=== PATIENT | female | born 1975 | race Caucasian/White ===

== ENCOUNTER 2018-03-13 01:36 | Inpatient (IN) | payer BC, OTHER ==
[~2018-03-13] VITALS: Ht 154.9 cm; Wt 61.2 kg
[2018-03-13 02:30] VITALS: BP 116/76
[2018-03-13] MEDS ORDERED: NAPR220T66 PO (02:39)
[2018-03-13] MEDS ORDERED: CLON0.1T PO (02:39)
[2018-03-13] MEDS ORDERED: DULO60CA63 PO (02:39)
[2018-03-13] MEDS ORDERED: TRAZ-147 PO (02:39)
[2018-03-13] MEDS ORDERED: ONDA4TAB11 PO (02:39)
[2018-03-13] MEDS ORDERED: GABA-534 PO (02:39)
[2018-03-13] MEDS ORDERED: FOLI1TAB16 PO (02:39)
[2018-03-13] MEDS ORDERED: MULT1TAB69 PO (02:39)
[2018-03-13] MEDS ORDERED: MAGNESIUM HYDROXIDE 30 ML LIQUID UDC PO PRN (02:45)
[2018-03-13] MEDS ORDERED: THIAMINE HCL 200 MG/2 ML VIAL IM ONE (02:45)
[2018-03-13] MEDS ORDERED: ONDANSETRON ODT 4 MG TAB.RAPDIS SL PRN (02:45)
[2018-03-13] MEDS ORDERED: LORAZEPAM 2 MG/1 ML VIAL IM PRN (02:45)
[2018-03-13] MEDS ORDERED: LORAZEPAM 1 MG TABLET PO PRN (02:45)
[2018-03-13] MEDS ORDERED: MIRALAX 17 GM POWD.PACK PO PRN (02:45)
[2018-03-13] MEDS ORDERED: MAG HYDROX/AL HYDROX/SIMETH 30 ML LIQUID UDC PO PRN (02:45)
[2018-03-13] MEDS ORDERED: DICYCLOMINE HCL 20 MG TABLET PO PRN (02:45)
[2018-03-13] MEDS ORDERED: ONDANSETRON 4 MG/2 ML VIAL IM PRN (02:45)
[2018-03-13] MEDS ORDERED: diphenhydrAMINE 50 MG CAPSULE PO PRN (02:45)
[2018-03-13] MEDS ORDERED: LOPERAMIDE HCL 2 MG CAPSULE PO PRN ×2 (02:45)
[2018-03-13 03:13] LABS: BASOPHILS # (AUTO) 0.1 K/uL (0.0-8.0); BASOPHILS % (AUTO) 0.7 % (0.0-2.0); EOSINOPHILS % (AUTO) 0.5 % (0.0-7.0); HEMATOCRIT 38.9 % (31.2-41.9); HEMOGLOBIN 13.4 g/dL (10.9-14.3); LYMPHOCYTES # (AUTO) 1.9 K/uL (20.0-40.0); LYMPHOCYTES % (AUTO) 24.2 % (20.5-51.5); MEAN CORPUSCULAR HEMOGLOBIN 31.3 uug (24.7-32.8); MEAN CORPUSCULAR HGB CONC 34 g/dL (32.3-35.6); MONOCYTES # (AUTO) 0.4 K/uL (2.0-10.0); MONOCYTES % (AUTO) 4.7 % (0.0-11.0); NEUTROPHILS # (AUTO) 5.5 K/uL (1.8-8.9); NEUTROPHILS % (AUTO) 69.9 % (38.5-71.5); PLATELET COUNT (AUTO) 283 K/uL (179-408); RED BLOOD CELL COUNT(AUTO) 4.28 MIL/uL (3.63-4.92); WHITE BLOOD COUNT (AUTO) 7.8 K/uL (3.8-11.8)
[2018-03-13 03:16] LABS: *AMPHETAMINE, URINE NEGATIVE (NEGATIVE); *BARBITURATE, URINE NEGATIVE (NEGATIVE); *CANNABINOID, URINE NEGATIVE (NEGATIVE); *COCCAINE, URINE NEGATIVE (NEGATIVE); *OPIATE, URINE NEGATIVE (NEGATIVE); *PHENCYCLIDINE SCREEN,URINE NEGATIVE (NEGATIVE)
[2018-03-13 03:29] LABS: CREATININE 0.7 mg/dL (0.6-1.3); MAGNESIUM 1.6 mg/dL (1.8-2.4); POTASSIUM 3.2 mmol/L (3.5-5.1); TOTAL PROTEIN, SERUM 8.5 g/dL (6.4-8.2)
[2018-03-13 03:37] LABS: THYROID STIMULATING HORMONE 2.25 mIU/mL (0.358-3.740)
[2018-03-13] MEDS ORDERED: MAGNESIUM OXIDE 400 MG TABLET PO ONE (04:00)
[2018-03-13] MEDS ORDERED: POTASSIUM CHLORIDE 20 MEQ TAB.PRT.SR PO ONE (04:00)
[2018-03-13 04:27] LABS: *URINE HCG, QUAL NEGATIVE (NEGATIVE)
[2018-03-13] MEDS: LORAZEPAM 1 MG TABLET PO PRN ×3 (04:29→10:24)
[2018-03-13] MEDS: IBUPROFEN 400 MG TABLET PO PRN ×2 (04:29→21:01)
[2018-03-13 08:00] VITALS: BP 131/89
[2018-03-13] MEDS: MULTIVITAMINS,THERAPEUTIC TABLET PO SCH (08:23)
[2018-03-13] MEDS: FOLIC ACID 1 MG TABLET PO SCH (08:23)
[2018-03-13] MEDS: THIAMINE HCL 100 MG TABLET PO SCH (08:23)
[2018-03-13 12:00] VITALS: BP 141/85
[2018-03-13] MEDS: LORAZEPAM 1 MG TABLET PO SCH ×3 (13:05→21:01)
[2018-03-13] MEDS: GABAPENTIN 300 MG CAPSULE PO SCH ×2 (13:05→17:14)
[2018-03-13 16:00] VITALS: BP 138/73
[2018-03-13] MEDS ORDERED: QUETIAPINE FUMARATE 25 MG TABLET PO PRN (17:30)
[2018-03-13 20:00] VITALS: BP 130/86
[2018-03-13] MEDS: TRAZODONE 100 MG TABLET PO SCH (21:01)
[2018-03-14 06:06] LABS: HEPATITIS B SURFACE AG Negative (Negative)
[2018-03-14 08:06] VITALS: BP 127/74
[2018-03-14 08:37] LABS: CREATININE 0.6 mg/dL (0.6-1.3); MAGNESIUM 1.9 mg/dL (1.8-2.4); POTASSIUM 3.3 mmol/L (3.5-5.1)
[2018-03-14] MEDS ORDERED: TUBERCULIN,PURIF.PROT.DERIV. 5 TU/0.1 ML TEST ID ONE (09:00)
[2018-03-14] MEDS: LORAZEPAM 1 MG TABLET PO SCH ×3 (09:36→20:14)
[2018-03-14] MEDS: THIAMINE HCL 100 MG TABLET PO SCH (09:36)
[2018-03-14] MEDS: MULTIVITAMINS,THERAPEUTIC TABLET PO SCH (09:36)
[2018-03-14] MEDS: GABAPENTIN 300 MG CAPSULE PO SCH ×3 (09:36→17:49)
[2018-03-14] MEDS: DULOXETINE 60 MG CAPSULE.DR PO SCH (09:36)
[2018-03-14] MEDS: FOLIC ACID 1 MG TABLET PO SCH (09:36)
[2018-03-14] MEDS: ACETAMINOPHEN 325 MG TABLET PO PRN (11:30)
[2018-03-14 12:09] VITALS: BP 153/87
[2018-03-14] MEDS ORDERED: POTASSIUM CHLORIDE 20 MEQ TAB.PRT.SR PO ONE (13:00)
[2018-03-14] MEDS ORDERED: BENZTROPINE MESYLATE 1 MG TABLET PO PRN (14:15)
[2018-03-14] MEDS: HALOPERIDOL 5 MG TABLET PO SCH ×2 (15:04→20:14)
[2018-03-14 16:00] VITALS: BP 139/93
[2018-03-14] MEDS ORDERED: LORAZEPAM 1 MG TABLET PO PRN ×2 (16:45)
[2018-03-14 20:00] VITALS: BP 132/87
[2018-03-14] MEDS: TRAZODONE 100 MG TABLET PO SCH (20:14)
[2018-03-15 08:00] VITALS: BP 128/86
[2018-03-15] MEDS: FOLIC ACID 1 MG TABLET PO SCH (08:55)
[2018-03-15] MEDS: MULTIVITAMINS,THERAPEUTIC TABLET PO SCH (08:55)
[2018-03-15] MEDS: GABAPENTIN 300 MG CAPSULE PO SCH ×3 (08:55→16:46)
[2018-03-15] MEDS: LORAZEPAM 1 MG TABLET PO SCH ×4 (08:55→21:00)
[2018-03-15] MEDS: HALOPERIDOL 5 MG TABLET PO SCH (08:55)
[2018-03-15] MEDS: DULOXETINE 60 MG CAPSULE.DR PO SCH (08:55)
[2018-03-15] MEDS: THIAMINE HCL 100 MG TABLET PO SCH (08:55)
[2018-03-15 09:55] LABS: CREATININE 0.8 mg/dL (0.6-1.3); MAGNESIUM 1.7 mg/dL (1.8-2.4); POTASSIUM 3.8 mmol/L (3.5-5.1)
[2018-03-15] MEDS ORDERED: MAGNESIUM OXIDE 400 MG TABLET PO ONE (11:00)
[2018-03-15 12:00] VITALS: BP 140/76
[2018-03-15] MEDS ORDERED: OLANZAPINE ZYDIS 5 MG TAB.RAPDIS PO SCH (15:30)
[2018-03-15 16:00] VITALS: BP 123/81
[2018-03-15] MEDS ORDERED: HALOPERIDOL LACTATE 5 MG/1 ML VIAL IM ONE (16:30)
[2018-03-15] MEDS ORDERED: LORAZEPAM 2 MG/1 ML VIAL IM ONE (16:30)
[2018-03-15] MEDS ORDERED: diphenhydrAMINE 50 MG/1 ML VIAL IM ONE (16:30)
[2018-03-15] MEDS: DIVALPROEX 500 MG TABLET.DR PO SCH (16:46)
[2018-03-15] MEDS: OLANZAPINE ZYDIS 5 MG TAB.RAPDIS PO SCH (16:47)
[2018-03-15 20:00] VITALS: BP 112/70
[2018-03-15] MEDS: TRAZODONE 100 MG TABLET PO SCH (21:00)
[2018-03-16 07:14] LABS: BASOPHILS % (AUTO) 1.2 % (0.0-2.0); EOSINOPHILS # (AUTO) 0.1 K/uL (0.0-0.7); EOSINOPHILS % (AUTO) 2.2 % (0.0-7.0); HEMATOCRIT 34.5 % (31.2-41.9); HEMOGLOBIN 12.1 g/dL (10.9-14.3); LYMPHOCYTES # (AUTO) 1.2 K/uL (20.0-40.0); LYMPHOCYTES % (AUTO) 41.7 % (20.5-51.5); MEAN CORPUSCULAR HGB CONC 35 g/dL (32.3-35.6); MEAN CORPUSCULAR VOLUME 91.2 fL (75.5-95.3); MONOCYTES # (AUTO) 0.2 K/uL (2.0-10.0); NEUTROPHILS # (AUTO) 1.4 K/uL (1.8-8.9); NEUTROPHILS % (AUTO) 47.9 % (38.5-71.5); PLATELET COUNT (AUTO) 182 K/uL (179-408); RED BLOOD CELL COUNT(AUTO) 3.78 MIL/uL (3.63-4.92)
[2018-03-16 07:21] LABS: CREATININE 0.7 mg/dL (0.6-1.3); MAGNESIUM 1.7 mg/dL (1.8-2.4); PHOSPHOROUS 3.4 mg/dL (2.5-4.9); POTASSIUM 3.5 mmol/L (3.5-5.1)
[2018-03-16] MEDS: LORAZEPAM 1 MG TABLET PO SCH ×3 (09:59→21:11)
[2018-03-16] MEDS: GABAPENTIN 300 MG CAPSULE PO SCH ×3 (09:59→17:00)
[2018-03-16] MEDS: ACETAMINOPHEN 325 MG TABLET PO PRN (09:59)
[2018-03-16] MEDS: FOLIC ACID 1 MG TABLET PO SCH (09:59)
[2018-03-16] MEDS: IBUPROFEN 400 MG TABLET PO PRN (09:59)
[2018-03-16] MEDS: MULTIVITAMINS,THERAPEUTIC TABLET PO SCH (10:00)
[2018-03-16] MEDS: DIVALPROEX 500 MG TABLET.DR PO SCH ×3 (10:00→17:00)
[2018-03-16] MEDS: THIAMINE HCL 100 MG TABLET PO SCH (10:00)
[2018-03-16] MEDS: OLANZAPINE ZYDIS 5 MG TAB.RAPDIS PO SCH ×2 (10:00→17:12)
[2018-03-16] MEDS: CYMBALTA 60 MG PO SCH (10:00)
[2018-03-16 16:28] VITALS: BP 129/61
[2018-03-16] MEDS ORDERED: MAGNESIUM OXIDE 400 MG TABLET PO ONE (17:00)
[2018-03-16 20:00] VITALS: BP 127/76
[2018-03-16] MEDS: TRAZODONE 100 MG TABLET PO SCH (21:10)
[2018-03-16] MEDS: MAGNESIUM OXIDE 400 MG TABLET PO SCH (21:10)
[2018-03-17 08:00] VITALS: BP 91/56
[2018-03-17] MEDS: DIVALPROEX 500 MG TABLET.DR PO SCH ×3 (08:51→17:38)
[2018-03-17] MEDS: LORAZEPAM 1 MG TABLET PO SCH ×2 (08:51→20:34)
[2018-03-17] MEDS: OLANZAPINE ZYDIS 5 MG TAB.RAPDIS PO SCH ×2 (08:51→17:39)
[2018-03-17] MEDS: CYMBALTA 60 MG PO SCH (08:51)
[2018-03-17] MEDS: MULTIVITAMINS,THERAPEUTIC TABLET PO SCH (08:51)
[2018-03-17] MEDS: THIAMINE HCL 100 MG TABLET PO SCH (08:52)
[2018-03-17] MEDS: GABAPENTIN 300 MG CAPSULE PO SCH ×3 (08:52→17:38)
[2018-03-17] MEDS: FOLIC ACID 1 MG TABLET PO SCH (08:52)
[2018-03-17 12:00] VITALS: BP 108/64
[2018-03-17 14:15] VITALS: BP 112/68
[2018-03-17] MEDS: CLONIDINE HCL 0.1 MG TABLET PO PRN (14:19)
[2018-03-17 16:00] VITALS: BP 102/59
[2018-03-17 20:00] VITALS: BP 111/67
[2018-03-17] MEDS: MAGNESIUM OXIDE 400 MG TABLET PO SCH (20:34)
[2018-03-17] MEDS: ACETAMINOPHEN 325 MG TABLET PO PRN (20:34)
[2018-03-17] MEDS: IBUPROFEN 400 MG TABLET PO PRN (20:34)
[2018-03-17] MEDS ORDERED: METHOCARBAMOL 750 MG TABLET PO ONE (20:45)
[2018-03-17] MEDS: TRAZODONE 100 MG TABLET PO SCH (22:56)
[2018-03-18 08:00] VITALS: BP 103/55
[2018-03-18] MEDS: THIAMINE HCL 100 MG TABLET PO SCH (08:55)
[2018-03-18] MEDS: CYMBALTA 60 MG PO SCH (08:55)
[2018-03-18] MEDS: FOLIC ACID 1 MG TABLET PO SCH (08:55)
[2018-03-18] MEDS: DIVALPROEX 500 MG TABLET.DR PO SCH ×3 (08:55→16:12)
[2018-03-18] MEDS: GABAPENTIN 300 MG CAPSULE PO SCH ×3 (08:55→16:13)
[2018-03-18] MEDS: MULTIVITAMINS,THERAPEUTIC TABLET PO SCH (08:55)
[2018-03-18] MEDS: OLANZAPINE ZYDIS 5 MG TAB.RAPDIS PO SCH ×2 (08:56→16:13)
[2018-03-18] MEDS: ACETAMINOPHEN 325 MG TABLET PO PRN (10:11)
[2018-03-18] MEDS: IBUPROFEN 400 MG TABLET PO PRN (10:11)
[2018-03-18 12:04] VITALS: BP 114/74
[2018-03-18 16:00] VITALS: BP 98/57
[2018-03-18] MEDS: CLONIDINE HCL 0.1 MG TABLET PO PRN (19:12)
[2018-03-18 20:00] VITALS: BP 105/62
[2018-03-18] MEDS: TRAZODONE 100 MG TABLET PO SCH (20:33)
[2018-03-18] MEDS: MAGNESIUM OXIDE 400 MG TABLET PO SCH (20:33)
[2018-03-19] VITALS: BP 95/65
[2018-03-19] MEDS ORDERED: METHOCARBAMOL 750 MG TABLET PO ONE (01:30)
[2018-03-19] MEDS: IBUPROFEN 400 MG TABLET PO PRN ×2 (01:36→16:49)
[2018-03-19 08:00] VITALS: BP 98/62
[2018-03-19] MEDS: MULTIVITAMINS,THERAPEUTIC TABLET PO SCH (08:51)
[2018-03-19] MEDS: THIAMINE HCL 100 MG TABLET PO SCH (08:51)
[2018-03-19] MEDS: GABAPENTIN 300 MG CAPSULE PO SCH ×3 (08:52→16:48)
[2018-03-19] MEDS: DIVALPROEX 500 MG TABLET.DR PO SCH ×3 (08:52→16:48)
[2018-03-19] MEDS: OLANZAPINE ZYDIS 5 MG TAB.RAPDIS PO SCH ×3 (08:52→20:55)
[2018-03-19] MEDS: FOLIC ACID 1 MG TABLET PO SCH (08:52)
[2018-03-19] MEDS: CYMBALTA 60 MG PO SCH (08:52)
[2018-03-19 12:00] VITALS: BP 123/89
[2018-03-19 16:00] VITALS: BP 127/80
[2018-03-19] MEDS ORDERED: DICYCLOMINE HCL 20 MG TABLET PO ONE (18:00)
[2018-03-19] MEDS ORDERED: LORAZEPAM 1 MG TABLET PO ONE (18:00)
[2018-03-19 19:22] LABS: BASOPHILS % (AUTO) 0.9 % (0.0-2.0); EOSINOPHILS # (AUTO) 0.1 K/uL (0.0-0.7); EOSINOPHILS % (AUTO) 2.5 % (0.0-7.0); HEMATOCRIT 31.4 % (31.2-41.9); HEMOGLOBIN 10.8 g/dL (10.9-14.3); LYMPHOCYTES # (AUTO) 1.3 K/uL (20.0-40.0); LYMPHOCYTES % (AUTO) 39.7 % (20.5-51.5); MEAN CORPUSCULAR HEMOGLOBIN 31.8 uug (24.7-32.8); MEAN CORPUSCULAR HGB CONC 34 g/dL (32.3-35.6); MEAN CORPUSCULAR VOLUME 92.3 fL (75.5-95.3); MONOCYTES # (AUTO) 0.2 K/uL (2.0-10.0); MONOCYTES % (AUTO) 6.6 % (0.0-11.0); NEUTROPHILS # (AUTO) 1.7 K/uL (1.8-8.9); NEUTROPHILS % (AUTO) 50.3 % (38.5-71.5); PLATELET COUNT (AUTO) 149 K/uL (179-408); WHITE BLOOD COUNT (AUTO) 3.3 K/uL (3.8-11.8)
[2018-03-19 19:37] LABS: BILIRUBIN,DIRECT 0.1 mg/dL (0.0-0.2); BILIRUBIN,TOTAL 0.2 mg/dL (0.2-1.0); CREATININE 0.7 mg/dL (0.6-1.3); MAGNESIUM 1.5 mg/dL (1.8-2.4); POTASSIUM 3.7 mmol/L (3.5-5.1); TOTAL PROTEIN, SERUM 5.9 g/dL (6.4-8.2)
[2018-03-19 20:00] VITALS: BP 110/71
[2018-03-19 20:06] LABS: *BILIRUBIN,URIN NEGATIVE (NEGATIVE); *BLOOD, URINE NEGATIVE (NEGATIVE); *CLARITY,URINE CLEAR (CLEAR); *COLOR,URINE YELLOW (YELLOW); *KETONES,URINE NEGATIVE (NEGATIVE); *PROTEIN,URINE NEGATIVE (NEGATIVE); *UROBILINOGEN,URINE 0.2 E.U./dl (NORMAL); LEUKOCYTE ESTERASE ,URINE NEGATIVE (NEGATIVE); NITRITE, URINE NEGATIVE (NEGATIVE); UGLUCOSE NEGATIVE (NEGATIVE)
[2018-03-19 20:21] LABS: BACTERIA,URINE NONE SEEN /HPF (NONE SEEN); RBC,URINE 0-3 /HPF (0-3); SQUAMOUS EPITHELIAL CELL,UR FEW /HPF (NONE SEEN); WBC,URINE 0-3 /HPF (0-3)
[2018-03-19] MEDS ORDERED: MAGNESIUM OXIDE 400 MG TABLET PO ONE (20:30)
[2018-03-19] MEDS: TRAZODONE 100 MG TABLET PO SCH (20:51)
[2018-03-19] MEDS: KETOROLAC TROMETHAMINE 30 MG INJ IM PRN (20:53)
[2018-03-19] MEDS: FAMOTIDINE 20 MG TABLET PO SCH (20:54)
[2018-03-19] MEDS: MAGNESIUM OXIDE 400 MG TABLET PO SCH (22:00)
[2018-03-20] VITALS: BP 110/62
[2018-03-20] MEDS ORDERED: LORAZEPAM 1 MG TABLET PO ONE (00:45)
[2018-03-20 08:55] VITALS: BP 110/53
[2018-03-20] MEDS: DIVALPROEX 500 MG TABLET.DR PO SCH ×3 (09:54→17:17)
[2018-03-20] MEDS: GABAPENTIN 300 MG CAPSULE PO SCH ×3 (09:55→17:17)
[2018-03-20] MEDS: MULTIVITAMINS,THERAPEUTIC TABLET PO SCH (09:55)
[2018-03-20] MEDS: OLANZAPINE ZYDIS 5 MG TAB.RAPDIS PO SCH ×2 (09:55→20:36)
[2018-03-20] MEDS: THIAMINE HCL 100 MG TABLET PO SCH (09:55)
[2018-03-20] MEDS: FAMOTIDINE 20 MG TABLET PO SCH (09:55)
[2018-03-20] MEDS: FOLIC ACID 1 MG TABLET PO SCH (09:55)
[2018-03-20] MEDS: CYMBALTA 60 MG PO SCH (09:58)
[2018-03-20 12:00] VITALS: BP 115/60
[2018-03-20] MEDS: KETOROLAC TROMETHAMINE 30 MG INJ IM PRN ×2 (12:13→20:36)
[2018-03-20] MEDS: ACETAMINOPHEN 325 MG TABLET PO PRN (14:15)
[2018-03-20] MEDS: LIDOCAINE 5% PATCH TD SCH (14:57)
[2018-03-20] MEDS ORDERED: OLANZAPINE 10 MG VIAL IM ONE (19:15)
[2018-03-20] MEDS ORDERED: LORAZEPAM 2 MG/1 ML VIAL IM ONE (19:15)
[2018-03-20 20:00] VITALS: BP 140/91
[2018-03-20] MEDS: MAGNESIUM OXIDE 400 MG TABLET PO SCH (20:36)
[2018-03-20] MEDS: TRAZODONE 100 MG TABLET PO SCH (20:36)
[2018-03-21] MEDS: KETOROLAC TROMETHAMINE 30 MG INJ IM PRN ×2 (06:11→21:30)
[2018-03-21] MEDS: FAMOTIDINE 20 MG TABLET PO SCH (08:23)
[2018-03-21] MEDS: THIAMINE HCL 100 MG TABLET PO SCH (08:23)
[2018-03-21] MEDS: MULTIVITAMINS,THERAPEUTIC TABLET PO SCH (08:23)
[2018-03-21] MEDS: DIVALPROEX 500 MG TABLET.DR PO SCH ×3 (08:24→16:14)
[2018-03-21] MEDS: GABAPENTIN 300 MG CAPSULE PO SCH ×3 (08:24→16:14)
[2018-03-21] MEDS: FOLIC ACID 1 MG TABLET PO SCH (08:24)
[2018-03-21] MEDS: OLANZAPINE ZYDIS 5 MG TAB.RAPDIS PO SCH ×2 (08:27→20:42)
[2018-03-21] MEDS: CYMBALTA 60 MG PO SCH (08:27)
[2018-03-21] MEDS: LIDOCAINE 5% PATCH TD SCH (08:27)
[2018-03-21 08:35] VITALS: BP 146/82
[2018-03-21 12:00] VITALS: BP 139/85
[2018-03-21] MEDS ORDERED: OLANZAPINE ZYDIS 5 MG TAB.RAPDIS PO ONE (13:45)
[2018-03-21 16:00] VITALS: BP 132/85
[2018-03-21] MEDS: HYDROXYZINE PAMOATE 25 MG CAPSULE PO PRN (18:48)
[2018-03-21 20:00] VITALS: BP 124/81
[2018-03-21] MEDS: GABAPENTIN 400 MG CAPSULE PO SCH (20:41)
[2018-03-21] MEDS: DOCUSATE SODIUM 100 MG CAPSULE PO SCH (20:41)
[2018-03-21] MEDS: TRAZODONE 100 MG TABLET PO SCH (20:42)
[2018-03-21] MEDS: MAGNESIUM OXIDE 400 MG TABLET PO SCH (20:42)
[2018-03-21] MEDS: CLONIDINE HCL 0.1 MG TABLET PO PRN (23:07)
[2018-03-22] MEDS: ACETAMINOPHEN 325 MG TABLET PO PRN ×2 (06:49→20:51)
[2018-03-22 08:40] VITALS: BP 115/60
[2018-03-22] MEDS: CYMBALTA 60 MG PO SCH (08:46)
[2018-03-22] MEDS: DIVALPROEX 500 MG TABLET.DR PO SCH ×3 (08:47→16:00)
[2018-03-22] MEDS: GABAPENTIN 400 MG CAPSULE PO SCH ×2 (08:47→15:59)
[2018-03-22] MEDS: OLANZAPINE ZYDIS 5 MG TAB.RAPDIS PO SCH ×2 (08:47→20:51)
[2018-03-22] MEDS: THIAMINE HCL 100 MG TABLET PO SCH (08:47)
[2018-03-22] MEDS: LIDOCAINE 5% PATCH TD SCH (08:47)
[2018-03-22] MEDS: MULTIVITAMINS,THERAPEUTIC TABLET PO SCH (08:47)
[2018-03-22] MEDS: FOLIC ACID 1 MG TABLET PO SCH (08:47)
[2018-03-22] MEDS: FAMOTIDINE 20 MG TABLET PO SCH (08:47)
[2018-03-22] MEDS: CLONIDINE HCL 0.1 MG TABLET PO PRN (12:17)
[2018-03-22] MEDS: HYDROXYZINE PAMOATE 25 MG CAPSULE PO PRN (12:17)
[2018-03-22 12:28] VITALS: BP 122/85
[2018-03-22] MEDS: BENZTROPINE MESYLATE 0.5 MG TABLET PO SCH (16:00)
[2018-03-22 16:52] VITALS: BP 118/81
[2018-03-22] MEDS ORDERED: diphenhydrAMINE 50 MG CAPSULE PO ONE (19:15)
[2018-03-22] MEDS ORDERED: HALOPERIDOL 5 MG TABLET PO ONE (19:15)
[2018-03-22] MEDS ORDERED: LORAZEPAM 1 MG TABLET PO ONE (19:15)
[2018-03-22 20:00] VITALS: BP 111/68
[2018-03-22] MEDS: GABAPENTIN 300 MG CAPSULE PO SCH (20:51)
[2018-03-22] MEDS: MAGNESIUM OXIDE 400 MG TABLET PO SCH (20:51)
[2018-03-22] MEDS: DOCUSATE SODIUM 100 MG CAPSULE PO SCH (20:51)
[2018-03-22] MEDS: TRAZODONE 100 MG TABLET PO SCH (22:22)
[2018-03-23 09:05] VITALS: BP 125/67
[2018-03-23] MEDS: MULTIVITAMINS,THERAPEUTIC TABLET PO SCH (09:06)
[2018-03-23] MEDS: FOLIC ACID 1 MG TABLET PO SCH (09:06)
[2018-03-23] MEDS: FAMOTIDINE 20 MG TABLET PO SCH (09:06)
[2018-03-23] MEDS: THIAMINE HCL 100 MG TABLET PO SCH (09:06)
[2018-03-23] MEDS: DIVALPROEX 500 MG TABLET.DR PO SCH ×2 (09:06→12:23)
[2018-03-23] MEDS: GABAPENTIN 300 MG CAPSULE PO SCH (09:06)
[2018-03-23] MEDS: CYMBALTA 60 MG PO SCH (09:07)
[2018-03-23] MEDS: BENZTROPINE MESYLATE 0.5 MG TABLET PO SCH (09:07)
[2018-03-23] MEDS: OLANZAPINE ZYDIS 5 MG TAB.RAPDIS PO SCH (09:07)
[2018-03-23] MEDS: LIDOCAINE 5% PATCH TD SCH (09:10)
[2018-03-23] MEDS: ACETAMINOPHEN 325 MG TABLET PO PRN (10:03)
[2018-03-23 12:46] VITALS: BP 125/71
[2018-03-23] MEDS ORDERED: CLON0.1T14 PO (15:13)
[2018-03-23] MEDS ORDERED: OLAN5TAB6 PO ×2 (15:13)
[2018-03-23] MEDS ORDERED: DIVA500T2 PO (15:13)
[2018-03-23] MEDS ORDERED: DIPH50CA37 PO (15:13)
[2018-03-23] MEDS ORDERED: BENZ0.5T43 PO (15:13)
[2018-03-23] MEDS ORDERED: HYDR-3895 PO (15:13)
== END 2018-03-23 16:00 | disposition other institution (70) | DRG 895 ==
LOC: SRC 01:36
PROVIDERS: ADMIT Internal Medicine; ATTEND Internal Medicine
PROC: HZ2ZZZZ Detoxification Services for Substance Abuse Treatment (ICD-10-PCS; principal; 2018-03-13)
PROC: HZ41ZZZ Group Counseling for Substance Abuse Treatment, Behavioral (ICD-10-PCS; 2018-03-18)
DX: F10.230 Alcohol dependence with withdrawal, uncomplicated (principal); E87.3 Alkalosis; T85.628A Displacement of other specified internal prosthetic devices, implants and grafts, initial encounter; F31.2 Bipolar disorder, current episode manic severe with psychotic features; Y90.9 Presence of alcohol in blood, level not specified; E83.42 Hypomagnesemia; E87.6 Hypokalemia; Z59.0 Homelessness; Z59.1 Inadequate housing; C50.911 Malignant neoplasm of unspecified site of right female breast; Z92.21 Personal history of antineoplastic chemotherapy; Z90.13 Acquired absence of bilateral breasts and nipples; M54.5 Low back pain; E88.09 Other disorders of plasma-protein metabolism, not elsewhere classified; Z98.1 Arthrodesis status; N80.9 Endometriosis, unspecified; K59.00 Constipation, unspecified; E86.0 Dehydration; Z98.84 Bariatric surgery status; N89.8 Other specified noninflammatory disorders of vagina; Z87.828 Personal history of other (healed) physical injury and trauma; G89.29 Other chronic pain; F41.9 Anxiety disorder, unspecified
CPT/HCPCS: 36415; 70030-TC; 74018; 80164; 80307; 80346; 83690; 83735; 84100; 84443; 84703; 85025; 86580; 86592; 86705; 86803; 87086; 87210; 87340; 87491; 87806; 93005; A4663; G0480; J1200; J1630; J1885; J2060; J2358; Q0163